=== PATIENT | female | born 1975 | race Caucasian/White ===

== ENCOUNTER → 2025-02-24 13:48 | Outpatient (CLI) | payer OTHER, SELFPAY ==
--- NOTE | 2025-02-24 13:49 | DI.MG.S_ITS ---
MM diagnostic mammo BI: 02/24/2025. BI-RADS: 2 CLINICAL: 49-year old female for bilateral diagnostic mammogram. Tyrer-Cuzick lifetime risk of 35.6%. Current reported family history of breast cancer: paternal grandmother, mother and maternal aunt. The patient reports pain in the right breast. 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 The patient is status-post reduction mammoplasty. The patient reports nonfocal right breast pain. PRIOR EXAMS 06/04/2022, 10/26/2015, 10/16/2015. MAMMOGRAPHY TECHNIQUE: 2D and 3D (tomosynthesis) digital mammographic views obtained, with additional images as needed for full coverage. Current study was also evaluated with a Computer Aided Detection (CAD) system. DENSITY C. The breasts are heterogeneously dense, which may obscure small masses. MAMMOGRAPHY FINDINGS Bilateral: Benign-appearing post-surgical changes noted. There are no suspicious masses, calcifications, or other findings in the breast. IMPRESSION: * No evidence of malignancy with benign findings. RECOMMENDATIONS Right * Diffuse, non-focal symptoms, such as pain or fullness are typically benign. Clinical follow-up is recommended, and further management of these symptoms should be based on the results of clinical evaluation. If diffuse symptoms persist or become more focal in nature, further clinical evaluation should be considered. Bilateral * According to the Tyrer-Cuzick Risk Assessment Model, based on the information provided your patient has a greater than 20% lifetime risk for developing breast cancer. Consider supplemental screening with breast MRI and participation in a high risk screening program. * Annual screening mammography. COMMENTS: Findings and recommendations were conveyed to the patient during today's evaluation. OVERALL ASSESSMENT CATEGORY BI-RADS-2: Benign. The [employer] recommends annual screening mammography beginning at age 40 for women with average risk of breast cancer. ELECTRONICALLY SIGNED: iSlvia Kothari M.D. on 02/24/2025 at 03:21:05 PM PT Interpreting Station ID: [id number]
== END ==
LOC: MAMMO 13:48
PROVIDERS: Family Provider Acupuncturist; PCP Physician Assistant; Referring Provider Physician Assistant; Visit Provider Physician Assistant
DX: N60.91 Unspecified benign mammary dysplasia of right breast (principal); N64.4 Mastodynia; R92.333 Mammographic heterogeneous density, bilateral breasts; Z80.3 Family history of malignant neoplasm of breast
CPT/HCPCS: 77066; G0279